=== PATIENT | male | born 1960 | race Caucasian/White ===

== ENCOUNTER → 2018-12-28 | Outpatient (CLI) | payer OTHER | END | disposition home or self-care (01) | LOC: RAH 14:12 | PROVIDERS: ATTEND Internal Medicine Cardiovascular Disease | DX: Z13.6 Encounter for screening for cardiovascular disorders (principal) | CPT/HCPCS: 75571 ==

== ENCOUNTER → 2019-01-22 | Outpatient (CLI) | payer BC | END | disposition home or self-care (01) | LOC: SHCH 07:40 | PROVIDERS: ATTEND Internal Medicine Cardiovascular Disease | DX: I71.4 Abdominal aortic aneurysm, without rupture (principal) | CPT/HCPCS: 93978 ==

== ENCOUNTER 2019-03-11 07:25 | Day surgery (SDC) | payer BC ==
[2019-03-08 10:56] VITALS: BP 160/84
[2019-03-08 11:22] LABS: BASOPHILS % (AUTO) 0.6 % (0.0-5.0); EOSINOPHILS % (AUTO) 2.3 % (0.0-8.0); HEMATOCRIT 33.2 % (42-54); LYMPHOCYTES % (AUTO) 21.5 % (21.0-51.0); MEAN CORPUSCULAR HEMOGLOBIN 31.3 pg (27.0-33.0); MEAN CORPUSCULAR HGB CONC 33.9 g/dL (32.0-36.0); MEAN CORPUSCULAR VOLUME 92.3 fL (79-99); MONOCYTES % (AUTO) 7.2 % (3.0-13.0); NEUTROPHILS % (AUTO) 68.4 % (40.0-77.0); PLATELET COUNT (AUTO) 257 K/uL (130-400); RED CELL DISTRIBUTION WIDTH 14.4 % (11.0-15.5); WHITE BLOOD COUNT (AUTO) 7.4 K/uL (4.8-10.8)
[2019-03-08 11:34] LABS: CREATININE 1.3 mg/dL (0.5-1.5); POTASSIUM 5.2 mmol/L (3.5-5.1)
[2019-03-08 12:21] LABS: INR 0.97 (0.85-1.15); PROTHROMBIN TIME 10.2 SEC (9.6-11.6)
[2019-03-08 12:50] LABS: APPEARANCE,URINE Clear (CLEAR); BILIRUBIN,URINE Negative (NEGATIVE); COLOR,URINE Yellow (YELLOW); GLUCOSE, URINE (UA) Negative (NEGATIVE); KETONES,URINE Negative (NEGATIVE); LEUKOCYTE ESTERASE ,URINE Negative (NEGATIVE); NITRATE,URINE Negative (NEGATIVE); OCCULT BLOOD,URINE Negative (NEGATIVE); PROTEIN,URINE Negative (NEGATIVE)
--- NOTE | 2019-03-08 16:46 | NUR ---
ABNORMAL LABS ABNORMAL LABS REPORTED TO DR. LILY [employer]. POTASSIUM 5.2, CREAT 1.3. ORDERS TO REPEAT BMP IN AM UPON ARRIVAL
[2019-03-11] VITALS (10 sets, daily range): BP systolic 134–154; BP diastolic 65–109
[~2019-03-11] VITALS: Ht 182.9 cm; Wt 85.9 kg
[~2019-03-11 07:25] MED LIST: ASPI-555 PO; ATOR20TA65 PO; DIVA-78 PO; LOSA100T58 PO; METO25TA6 PO; SODIUM CHLORIDE 0.9% 500ML 500 ML IV SCH; [UNRECOGNIZED DRUG - REMARK] PO
[2019-03-11 07:56] LABS: CREATININE 1.3 mg/dL (0.5-1.5); POTASSIUM 4.8 mmol/L (3.5-5.1)
[2019-03-11] MEDS ORDERED: NITROGLYCERIN 5 MG/ML 10 ML VIAL IV ONE (08:42)
[2019-03-11] MEDS ORDERED: IOHEXOL-350 50ML VIAL IV ONE (08:42)
[2019-03-11] MEDS ORDERED: LIDOCAINE HCL 2% 20ML ONE (08:42)
[2019-03-11] MEDS ORDERED: HEPARIN SODIUM 1000UNIT/ML 10ML VIAL ONE (08:42)
[2019-03-11] MEDS ORDERED: IOHEXOL 350 MG/ML 100ML INFUS..BTL IV ONE (08:42)
[2019-03-11] MEDS ORDERED: SODIUM BICARB 50MEQ 50ML VIAL ONE (08:42)
[2019-03-11] MEDS ORDERED: MIDAZOLAM HCL 1 MG/ML 2ML VIAL ONE (09:02)
[2019-03-11] MEDS ORDERED: MEPERIDINE-PF 25 MG/ML SYG ONE (09:03)
[2019-03-11] MEDS ORDERED: SODIUM CHLORIDE 0.9% 1000ML 1,000 ML IV ONE (09:06)
[2019-03-11] MEDS ORDERED: SODIUM CHLORIDE 0.9% 1000ML 1,000 ML IV SCH (09:52)
== END 2019-03-11 14:19 | disposition home or self-care (01) ==
LOC: DAH 07:25
PROVIDERS: ATTEND Internal Medicine Cardiovascular Disease
DX: I25.118 Atherosclerotic heart disease of native coronary artery with other forms of angina pectoris (principal); I10 Essential (primary) hypertension; E78.5 Hyperlipidemia, unspecified; Z79.01 Long term (current) use of anticoagulants
CPT/HCPCS: 36415 ×2; 71045; 80048 ×2; 81003; 85025; 85610; 85730; 93005; 93458; A4215; A4216; A4221; A4222; A4223 ×3; A4606; A4663; C1760 ×2; C1894; J1644; J2175; J2250; J3490 ×3; J7030; Q9965; Q9967 ×2; 99156; 99157

== ENCOUNTER → 2022-01-05 | Outpatient (CLI) | payer BC ==
[~2022-01-05] MED LIST changes: +ALBUTEROL 0.083% 2.5 MG/3 ML INH IH ONE; -ASPI-555 PO; +ASPI-556 PO; -SODIUM CHLORIDE 0.9% 500ML 500 ML IV SCH
== END | disposition home or self-care (01) ==
LOC: RESP 08:46
PROVIDERS: ATTEND Internal Medicine Cardiovascular Disease
DX: J44.9 Chronic obstructive pulmonary disease, unspecified (principal); R06.00 Dyspnea, unspecified
CPT/HCPCS: 94060

== ENCOUNTER 2022-02-21 07:25 | Day surgery (SDC) | payer BC ==
[2022-02-16 14:18] LABS: BASOPHILS % (AUTO) 0.5 % (0.0-5.0); EOSINOPHILS % (AUTO) 9.5 % (0.0-8.0); HEMATOCRIT 34.8 % (42-54); LYMPHOCYTES % (AUTO) 17.8 % (21.0-51.0); MEAN CORPUSCULAR HEMOGLOBIN 29.5 pg (27.0-33.0); MEAN CORPUSCULAR HGB CONC 31.6 g/dL (32.0-36.0); MEAN CORPUSCULAR VOLUME 93.3 fL (79-99); MONOCYTES % (AUTO) 7.9 % (3.0-13.0); NEUTROPHILS % (AUTO) 63.7 % (40.0-77.0); PLATELET COUNT (AUTO) 250 K/uL (130-400); RED BLOOD CELL COUNT(AUTO) 3.73 MIL/uL (4.50-6.20); RED CELL DISTRIBUTION WIDTH 14.3 % (11.0-15.5); WHITE BLOOD COUNT (AUTO) 9.5 K/uL (4.8-10.8)
[2022-02-16 14:27] LABS: CREATININE 1.7 mg/dL (0.5-1.5); POTASSIUM 5.5 mmol/L (3.5-5.1)
[2022-02-16 14:28] LABS: INR 0.94 (0.85-1.15); PROTHROMBIN TIME 10.3 SEC (9.6-11.6)
[2022-02-16 14:29] LABS: PARTIAL THROMBOPLASTIN TIME 26.8 SEC (26.3-35.5)
[2022-02-16 14:32] LABS: APPEARANCE,URINE CLEAR (CLEAR); BILIRUBIN,URINE NEGATIVE (NEGATIVE); COLOR,URINE YELLOW (YELLOW); GLUCOSE, URINE (UA) NEGATIVE (NEGATIVE); KETONES,URINE NEGATIVE (NEGATIVE); LEUKOCYTE ESTERASE ,URINE NEGATIVE Leu/uL (NEGATIVE); NITRATE,URINE NEGATIVE (NEGATIVE); OCCULT BLOOD,URINE NEGATIVE (NEGATIVE); PH,URINE 5.5 (5.0-8.0); PROTEIN,URINE NEGATIVE (NEGATIVE)
[2022-02-16 14:35] LABS: HYALINE CASTS, URINE 26-50 /LPF (0-1 /LPF); MUCUS,URINE RARE LPF (None Seen); OTHER CASTS, URINE 1 /LPF (None Seen); SQUAMOUS EPITHELIAL CELL,UR RARE /HPF (0-2); WBC,URINE 0-1 /HPF (0-1)
[2022-02-16 14:48] LABS: B-TYPE NATRIURETIC PEPTIDE 117 pg/mL (0-100)
[2022-02-18 11:16] VITALS: BP 146/96
[~2022-02-21] VITALS: Ht 182.9 cm; Wt 87.5 kg
[2022-02-21] VITALS (7 sets, daily range): BP systolic 104–179; BP diastolic 56–91
[~2022-02-21 07:25] MED LIST changes: +0.9% NACL 500ML IV.SOLN 500 ML IV SCH; +ADV250 IH; -ALBUTEROL 0.083% 2.5 MG/3 ML INH IH ONE; -ATOR20TA65 PO; +HYDR25TA PO; -LOSA100T58 PO; -METO25TA6 PO; +ROSU10TA28 PO; -[UNRECOGNIZED DRUG - REMARK] PO
[2022-02-21] MEDS ORDERED: 0.9%NACL 1000ML 1,000 ML IV ONE (07:39)
[2022-02-21] MEDS ORDERED: NICARDIPINE 25MG INJ IV ONE (10:48)
[2022-02-21] MEDS ORDERED: LIDOCAINE HCL-MPF 0.5% 50ML VIAL IJ ONE (10:48)
[2022-02-21] MEDS ORDERED: IOHEXOL 350 MG/ML 100ML INFUS..BTL IV ONE (10:49)
[2022-02-21] MEDS ORDERED: HEPARIN 10,000 UNIT/10ML (1,000 UNIT/ML) VIAL ONE (10:49)
[2022-02-21] MEDS ORDERED: MEPERIDINE-PF 25 MG/ML SYG ONE ×2 (10:49→11:15)
[2022-02-21] MEDS ORDERED: NITROGLYCERIN 50MG VIAL ONE (10:49)
[2022-02-21] MEDS ORDERED: IOHEXOL-350 50ML VIAL IV ONE (10:49)
[2022-02-21] MEDS ORDERED: MIDAZOLAM HCL 1 MG/ML 2ML VIAL ONE ×2 (10:49→11:15)
[2022-02-21] MEDS ORDERED: SODIUM BICARB 50MEQ 50ML VIAL 50 ML ONE (10:58)
== END 2022-02-21 13:40 | disposition home or self-care (01) ==
LOC: DAH 07:25
PROVIDERS: ATTEND Internal Medicine Cardiovascular Disease
DX: I25.10 Atherosclerotic heart disease of native coronary artery without angina pectoris (principal); I11.0 Hypertensive heart disease with heart failure; I50.42 Chronic combined systolic (congestive) and diastolic (congestive) heart failure; E78.5 Hyperlipidemia, unspecified; F17.200 Nicotine dependence, unspecified, uncomplicated; Z79.01 Long term (current) use of anticoagulants; Z79.899 Other long term (current) drug therapy; Z79.82 Long term (current) use of aspirin; Z82.49 Family history of ischemic heart disease and other diseases of the circulatory system; Z98.890 Other specified postprocedural states; Z53.8 Procedure and treatment not carried out for other reasons
CPT/HCPCS: 71045; 80048; 83880; 85025; 85610; 85730; 81001; 36415; 93005; J7030; J3490 ×4; J1644 ×2; J2250 ×2; J2175 ×2; A4215; A4222; A4221; A4663; A4216; A4606; A4223 ×3; C1894; Q9967